=== PATIENT | female | born 2000 | race African-American/Black ===

== ENCOUNTER → 2024-08-06 15:06 | Outpatient (CLI) | payer OTHER, SELFPAY ==
--- NOTE | 2024-08-06 15:10 | DI.US.S_ITS ---
LIMITED ULTRASOUND OF LEFT BREAST: 08/06/2024 CLINICAL: Palpable left breast lump. No prior exams were available for comparison. Color flow ultrasound of the left breast 10 o'clock region was performed. Lynn scale images of the real-time examination were reviewed. There is a 0.9 cm x 0.6 cm x 1 cm oval mass with a circumscribed margin in the left breast at 10 o'clock, 3 cm from the nipple. This oval mass is hypoechoic. This correlates with mammography findings. Color flow imaging demonstrates that there is no vascularity present. IMPRESSION: PROBABLY BENIGN Left breast 1 cm oval circumscribed mass at 10 o'clock position corresponding to area of palpable concern. 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 A follow-up ultrasound in 6 months is recommended to demonstrate stability. Findings and recommendations were conveyed to the patient during today's evaluation. Patient was instructed to return sooner if there is rapid increase in size of finding or development of any clinically suspicious findings in the interim. This exam was interpreted at Station ID: [id number]. Electronically Signed By: Ritika Gómez M.D., Ph.D. eb/:08/07/2024 06:25:33 letter sent: Followup Recommended ACR BI-RADS Category 3: Probably Benign
== END ==
DX: N63.22 Unspecified lump in the left breast, upper inner quadrant (principal)
CPT/HCPCS: 76642